=== PATIENT | male | born 1955 | race Caucasian/White ===

== ENCOUNTER 2017-01-26 01:45 | Emergency (ER) | payer OTHER, MEDICARE ==
[~2017-01-26] VITALS: Ht 172.7 cm; Wt 74.8 kg
[2017-01-26] MEDS ORDERED: LORAZEPAM2 M1 PO (02:10)
[2017-01-26] MEDS ORDERED: DULOXETINE HCL60 MG PO (02:11)
[2017-01-26 02:20] LABS: ABSOLUTE BASOPHIL COUNT 0 /CUMM (0.0-0.2); ABSOLUTE EOSINOPHIL COUNT 0.3 /CUMM (0.0-0.7); ABSOLUTE GRANULOCYTE CT 6.1 /CUMM (1.4-6.5); ABSOLUTE LYMPH COUNT 3.4 /CUMM (1.2-3.4); ABSOLUTE MONOCYTE COUNT 0.6 /CUMM (0.10-0.60); BASOPHIL % 0.4 % (0.0-2.0); EOSINOPHIL % 3.2 % (0-5); MEAN CORPUSCULAR HGB 28.7 PG (27.0-31.0); MEAN CORPUSCULAR HGB CONC 33.4 G/DL (33.0-37.0); MEAN CORPUSCULAR VOLUME 85.8 FL (80.0-94.0); MEAN PLATELET VOLUME 8.6 FL (7.4-10.4); PLATELET COUNT 228 /CUMM (130-400); RED BLOOD CELL CT 5.25 /CUMM (4.70-6.10); WHITE BLOOD CELL COUNT 10.4 /CUMM (4.8-10.8)
--- NOTE | 2017-01-26 02:23 | ED GI/GU/ABDOMINAL COMPLAINT ---
History of Present Illness General Chief Complaint: Abdominal Pain/Flank Pain Stated Complaint: "PER PT ABD PAIN RADIATING" Source: patient Exam Limitations: no limitations Vital Signs & Intake/Output Vital Signs & Intake/Output Vital Signs Date Time Temp Pulse Resp B/P B/P Pulse O2 O2 Flow FiO2 Mean Ox Delivery Rate 01/26 0404 56 20 118/80 96 Room Air 01/26 0209 95.4 60 18 123/76 94 Room Air Allergies Coded Allergies: erythromycin base (Severe, "COLON BLEEDS" 01/26/17) Reconcile Medications Duloxetine HCl 60 MG CAPSULE.DR 1 CAP PO DAILY (Reported) Lorazepam 2 MG TABLET 1 TAB PO QPMP ANXIETY (Reported) Triage Nurses Notes Reviewed? yes Onset: Gradual Duration: day(s):, waxing and waning Timing: recent history Quality/Severity: cramping Location: right flank Radiation: no radiation Activities at Onset: none Prior Abdominal Problems: none Modifying Factors: Worsens With: movement, palpation. Associated Symptoms: abdominal pain HPI: 61 yo gentleman h/o hip replacement in October 2016 presents with right flank pain x 6 days. "I bent over a few days ago... and now it still hurts... it feels deep... It hurts when I move." No nausea, vomiting, diarrhea, dysuria. Past History Travel History Traveled to [place] past 21 day No Medical History Any Pertinent Medical History? see below for history Psychiatric: depression, opioid dependence Surgical History Surgical History: right hip replacement. Psychosocial History What is your primary language Belarusian Family History Hx Contributory? No Review of Systems Review of Systems Constitutional: Reports: no symptoms. EENTM: Reports: no symptoms. Respiratory: Reports: no symptoms. Cardiovascular: Reports: no symptoms. GI: Reports: no symptoms. Genitourinary: Reports: no symptoms. Musculoskeletal: Reports: no symptoms. Skin: Reports: no symptoms. Neurological/Psychological: Reports: no symptoms. Hematologic/Endocrine: Reports: no symptoms. Immunologic/Allergic: Reports: no symptoms. All Other Systems: Reviewed and Negative Physical Exam Physical Exam General Appearance: well developed/nourished, mild distress Head: atraumatic, normal appearance Eyes: Bilateral: normal appearance. Ears, Nose, Throat, Mouth: hearing grossly normal Neck: normal inspection, supple, full range of motion Respiratory: normal breath sounds, chest non-tender, no respiratory distress, quiet respiration, lungs clear Cardiovascular: regular rate/rhythm Gastrointestinal: normal bowel sounds, soft, right sided tenderness to palpation. Back: normal inspection, normal range of motion Extremities: normal range of motion Neurologic/Psych: no motor/sensory deficits, awake, alert, oriented x 3 Skin: intact, normal color, warm/dry Core Measures ACS in differential dx? No Severe Sepsis Present: No Septic Shock Present: No Progress Differential Diagnosis: appendicitis, cholecystitis, diverticulitis, vs other. Plan of Care: Orders Procedure Date/time Status TROPONIN LEVEL 01/26 147 Complete LIPASE 01/26 147 Complete HEPATIC FUNCTION PANEL 01/26 147 Complete CBC WITHOUT DIFFERENTIAL 01/26 147 Complete BASIC METABOLIC PANEL 01/26 147 Complete AMYLASE 01/26 147 Complete EKG 01/26 147 Active Laboratory Tests 01/26/17 0200: Anion Gap 8, Estimated GFR > 60, BUN/Creatinine Ratio 27.5 H, Glucose 94, Calcium 9.4, Total Bilirubin 0.3, Direct Bilirubin 0.2, AST 30, ALT 35, Alkaline Phosphatase 65, Troponin I < 0.01, Total Protein 6.5, Albumin 3.8, Amylase 96, Lipase 170, CBC w Diff NO MAN DIFF REQ, RBC 5.25, MCV 85.8, MCH 28.7, RDW 14.0, MPV 8.6, Gran % 58.0, Lymphocytes % 33.0, Monocytes % 5.4, Eosinophils % 3.2, Basophils % 0.4, Absolute Granulocytes 6.1, Absolute Lymphocytes 3.4, Absolute Monocytes 0.6, Absolute Eosinophils 0.3, Absolute Basophils 0, PUBS MCHC 33.4 Diagnostic Imaging: Viewed by Me: CT Scan. Discussed w/RAD: CT Scan. Radiology Impression: abd/pelvic ct... no acute disease... full report below. Initial ED EKG: normal axis, normal intervals, normal p-waves, normal QRS complex, normal sinus rhythm Comments: PATIENT: YOVANI VENTURA PRESENT AGE: 61 PATIENT ACCOUNT NO: [id number] : 56 LOCATION: [facility] ORDERING PHYSICIAN: ERVIN PATRICK MD SERVICE DATE: 01/26/17 EXAM TYPE: CAT - CT ABD & PELVIS W/O IV CONTRAS EXAMINATION: CT ABDOMEN AND PELVIS WITHOUT CONTRAST CLINICAL INFORMATION: Right flank pain COMPARISON: None TECHNIQUE: Multidetector volumetric imaging was performed from the superior aspect of the liver through the pubic symphysis. Sagittal and coronal reformatted images were obtained on the technologist's workstation. DLP: 401.20 mGy-cm FINDINGS: LUNG BASES: The visualized lung bases are unremarkable. LIVER, GALLBLADDER, AND BILIARY TREE: The liver is normal in size, shape, and attenuation. No focal hepatic lesion or biliary ductal dilatation is present. The gallbladder is unremarkable with no evidence of radiopaque gallstones, gallbladder wall thickening, or obvious pericholecystic inflammatory changes. PANCREAS: Unremarkable. SPLEEN: Unremarkable. ADRENAL GLANDS: Unremarkable. KIDNEYS AND URETERS: The kidneys are normal in size, shape, and attenuation. No hydronephrosis, hydroureter, or calculi seen. BLADDER: Unremarkable. GASTROINTESTINAL TRACT: The small and large bowel are unremarkable. The appendix is unremarkable. No free fluid or free air is seen. ABDOMINAL WALL: No significant hernia is appreciated. LYMPH NODES: Normal. VASCULAR: Scattered atherosclerotic calcifications are present. PELVIC VISCERA: Unremarkable. OSSEOUS STRUCTURES: Patient is status post right total hip arthroplasty. There are degenerative changes, most prominently in the mid to lower lumbar spine. IMPRESSION: No acute findings identified in the abdomen/pelvis. DICTATED BY: SHY QUEVEDO MD DATE/TIME DICTATED:01/26/17337 CHAIR UPHOLSTERER:SAUL DATE/TIME TRANSCRIBED:01/26/17337 CONFIDENTIAL, DO NOT COPY WITHOUT APPROPRIATE AUTHORIZATION. <Electronically signed in Other Vendor System> SIGNED BY: SHY QUEVEDO MD 01/26/17 0350 Departure Departure Disposition: HOME OR SELF CARE Condition: Stable Clinical Impression Primary Impression: Abdominal pain Referrals: GILBERTO STEVENSON,BULL [place] (PCP/Family) Departure Forms: Customer Survey General Discharge Information Comments pt well appearing at discharge. Negative ct scan, labs benign... pt safe for discharge... advised close follow up with his pmd.
--- NOTE | 2017-01-26 03:50 | CT SCAN REPORT ---
EXAMINATION: CT ABDOMEN AND PELVIS WITHOUT CONTRAST CLINICAL INFORMATION: Right flank pain COMPARISON: None TECHNIQUE: Multidetector volumetric imaging was performed from the superior aspect of the liver through the pubic symphysis. Sagittal and coronal reformatted images were obtained on the technologist's workstation. DLP: 401.20 mGy-cm FINDINGS: LUNG BASES: The visualized lung bases are unremarkable. LIVER, GALLBLADDER, AND BILIARY TREE: The liver is normal in size, shape, and attenuation. No focal hepatic lesion or biliary ductal dilatation is present. The gallbladder is unremarkable with no evidence of radiopaque gallstones, gallbladder wall thickening, or obvious pericholecystic inflammatory changes. PANCREAS: Unremarkable. SPLEEN: Unremarkable. ADRENAL GLANDS: Unremarkable. KIDNEYS AND URETERS: The kidneys are normal in size, shape, and attenuation. No hydronephrosis, hydroureter, or calculi seen. BLADDER: Unremarkable. GASTROINTESTINAL TRACT: The small and large bowel are unremarkable. The appendix is unremarkable. No free fluid or free air is seen. ABDOMINAL WALL: No significant hernia is appreciated. LYMPH NODES: Normal. VASCULAR: Scattered atherosclerotic calcifications are present. PELVIC VISCERA: Unremarkable. OSSEOUS STRUCTURES: Patient is status post right total hip arthroplasty. There are degenerative changes, most prominently in the mid to lower lumbar spine. IMPRESSION: No acute findings identified in the abdomen/pelvis.
[2017-01-26 04:04] VITALS: BP 118/80
== END 2017-01-26 04:06 ==
LOC: ERH 01:45
PROVIDERS: Pediatrics
DX: R10.31 Right lower quadrant pain (principal)
CPT/HCPCS: 74176; 93005; 93010

== ENCOUNTER 2017-12-10 21:44 | Emergency (ER) | payer OTHER, MEDICARE ==
[~2017-12-10] VITALS: Ht 175.3 cm; Wt 75.8 kg
[~2017-12-10 21:44] MED LIST: DULOXETINE HCL60 MG PO; LORAZEPAM2 M1 PO
[2017-12-10 21:48] VITALS: BP 165/89
--- NOTE | 2017-12-10 23:08 | RADIOLOGY REPORT ---
EXAMINATION: XR CHEST CLINICAL INFORMATION: Pain COMPARISON: 04/17/2017 chest TECHNIQUE: 2 views of the chest were obtained. FINDINGS: Pacemaker leads are present over the right atrium and right ventricular apex without significant change from prior. There is a normal heart size and mildly tortuous aorta unchanged. Pulmonary vascularity is unchanged. Lungs are clear. There is no pleural effusion or pneumothorax. No acute bony abnormality IMPRESSION: Chest x-ray shows no acute findings and no change from prior
--- NOTE | 2017-12-11 00:43 | ED INFLUENZA/URI COMPLAINT ---
History of Present Illness General Chief Complaint: General Adult Stated Complaint: LOW BACK PAIN, THROAT PAIN, ?FEVER Source: patient Exam Limitations: no limitations Vital Signs & Intake/Output Vital Signs & Intake/Output ED Intake and Output 12/12 0000 12/11 1200 Intake Total 0 Output Total Balance 0 Intake, Oral 0 Allergies Coded Allergies: erythromycin base (Severe, "COLON BLEEDS" 01/26/17) Reconcile Medications Amoxicillin 500 MG TABLET 2 TAB PO BID PHARYNGITIS Amoxicillin 500 MG TABLET 1 TAB PO BID PHARYNGITIS DISREGARD PREVIOUS PLEASE DISREGARD PREVIOUS RX THIS IS COPRRECT Duloxetine HCl 60 MG CAPSULE. 1 CAP PO DAILY (Reported) Lorazepam 2 MG TABLET 1 TAB PO QPMP ANXIETY (Reported) Triage Note: PT TO TRIAGE WHILE VISITING SPOUSE WHO IS PT IN ER STATING "MY LUNGS HURT AND MY THROAT HURTS." PT REPORTS BEEN AROUND SOMEONE WITH STREP THROAT. TEMP 99.0. HX MRSA Triage Nurses Notes Reviewed? yes Onset: Abrupt Duration: day(s): (2-3), constant, continues in ED, getting worse Timing: single episode today Severity: mild, moderate Severity Numbers: 6 Prior Episodes/Possible Cause: no prior episodes No Modifying Factors: none Associated Symptoms: cough, nasal congestion, nasal drainage, sore throat HPI: 62-year-old male past medical history of depression, pacemaker placement, presents for evaluation of cough, congestion and sore throat. Patient states that this started 2 or 3 days ago. Pain is worse with swallowing but he is tolerating fluids. His is sick at home with similar symptoms. He denies shortness of breath or chest pain but does state that he has some pain in his ribs when coughing. Cough is dry. No history of underlying lung disease like asthma COPD. He is not a smoker. No fevers at home. Has not taken any medicine for this. No abdominal pain nausea vomiting diarrhea. (Bong Shell) Past History Travel History Traveled to [place] past 21 day No Medical History Any Pertinent Medical History? see below for history Neurological: NONE EENT: NONE Cardiovascular: NONE Respiratory: NONE Gastrointestinal: NONE Hepatic: NONE Renal: NONE Musculoskeletal: NONE Psychiatric: depression, opioid dependence Endocrine: NONE Blood Disorders: NONE Cancer(s): NONE SHIRT CLEANER/Reproductive: NONE Surgical History Surgical History: right hip replacement. Psychosocial History What is your primary language Bhutanese Tobacco Use: Never used Family History Hx Contributory? No (Bong Shell) Review of Systems Review of Systems Constitutional: Reports: no symptoms. EENTM: Reports: nasal congestion, throat pain. Respiratory: Reports: see HPI, cough. Cardiovascular: Reports: no symptoms. GI: Reports: no symptoms. Genitourinary: Reports: no symptoms. Musculoskeletal: Reports: no symptoms. Skin: Reports: no symptoms. Neurological/Psychological: Reports: no symptoms. Hematologic/Endocrine: Reports: no symptoms. Immunologic/Allergic: Reports: no symptoms. All Other Systems: Reviewed and Negative (Bong Shell) Physical Exam Physical Exam General Appearance: well developed/nourished, no apparent distress, alert, awake Head: atraumatic, normal appearance Eyes: Bilateral: normal appearance, PERRL, EOMI. Ears, Nose, Throat: moist mucous membrane, hearing grossly normal, Tympanic normal, nasal congestion, nasal drainage, pharyngeal erythema Neck: normal inspection, supple, full range of motion, lymphadenopathy (R), lymphadenopathy (L) Respiratory: normal breath sounds, chest non-tender, no respiratory distress, lungs clear Cardiovascular: regular rate/rhythm, normal peripheral pulses Peripheral Pulses: 2+ radial (R), 2+ radial (L) Gastrointestinal: soft, non-tender Back: normal inspection, normal range of motion, no vertebral tenderness Extremities: normal inspection, normal range of motion, no edema Neurologic/Psych: no motor/sensory deficits, awake, alert, oriented x 3, normal gait, normal mood/affect Skin: intact, normal color, warm/dry Lymphatic: no anterior cervical anastasiya Core Measures Sepsis Present: No Sepsis Focused Exam Completed? No (Bong Shell) Progress Differential Diagnosis: influenza, otitis, pneumonia, pharyngitis, sinusitis Plan of Care: Orders Procedure Date/time Status THROAT CULTURE W/QUICK STREP 12/11 2151 Complete Patient seen and evaluated. He is here with a sore throat cough congestion. His is sick at home with similar symptoms. He is able tolerate fluids or signs of abscess. Rapid strep is positive. Chest x-ray is clear. Vital signs are stable. He appears clinically well. Patient was given a prescription for amoxicillin. Tylenol ibuprofen for pain warm fluids or water gargles. Follow- up with primary care doctor discussed return precautions patient agrees the plan Diagnostic Imaging: Viewed by Me: Radiology Read. Discussed w/RAD: Radiology Read. Radiology Impression: PATIENT: YOVANI VENTURA PRESENT AGE: 62 PATIENT ACCOUNT NO: [id number] : 56 LOCATION: [facility] ORDERING PHYSICIAN: Carlos Coronado DO (TBS) SERVICE DATE: 12/10/17 EXAM TYPE: RAD - XRY-CHEST XRAY, TWO VIEWS EXAMINATION: XR CHEST CLINICAL INFORMATION : Pain COMPARISON: 04/17/2017 chest TECHNIQUE: 2 views of the chest were obtained. FINDINGS: Pacemaker leads are present over the right atrium and right ventricular apex without significant change from prior. There is a normal heart size and mildly tortuous aorta unchanged. Pulmonary vascularity is unchanged. Lungs are clear. There is no pleural effusion or pneumothorax. No acute bony abnormality IMPRESSION: Chest x-ray shows no acute findings and no change from prior DICTATED BY: Renee Fowler MD DATE/TIME DICTATED:12/10/172301 STEELER:SAUL DATE/TIME TRANSCRIBED:12/10/172301 CONFIDENTIAL, DO NOT COPY WITHOUT APPROPRIATE AUTHORIZATION. <Electronically signed in Other Vendor System> Initial ED EKG: none (Bong Shell) Departure Departure Disposition: HOME OR SELF CARE Condition: Stable Clinical Impression Primary Impression: Strep pharyngitis Referrals: Jennifer STEVENSON,[place] (PCP/Family) Additional Instructions: Take antibiotics as directed for the full course. Tylenol or IBUProfen as needed for pain or fevers. Warm fluids salt gargles, lozengesto soothe YOUr throat. Make a follow-up appointment with YOUR primary care doctor to review all results of today's visit. Monitor symptoms and return with any concerns. Departure Forms: Customer Survey General Discharge Information Prescriptions: Current Visit Scripts Amoxicillin 2 TAB PO BID #20 TAB Amoxicillin 1 TAB PO BID #20 TAB PLEASE DISREGARD PREVIOUS RX THIS IS COPRRECT (Bong Shell) PA/TRANSIT MIXER OPERATOR Co-Sign Statement Statement: ED Attending supervision documentation- [] I saw and evaluated the patient. I have also reviewed all the pertinent lab results and diagnostic results. I agree with the findings and the plan of care as documented in the PA's/TRANSIT MIXER OPERATOR's documentation. [x] I have reviewed the ED Record and agree with the PA's/TRANSIT MIXER OPERATOR's documentation. [] Additions or exceptions (if any) to the PAs/TRANSIT MIXER OPERATOR's note and plan are summarized below: [] (Kika STEVENSON,Brendan Michael)
[2017-12-11] MEDS ORDERED: AMOXICILLIN500 M3 PO ×2 (00:47→00:48)
== END 2017-12-11 01:14 ==
LOC: ERH 21:44
DX: J02.0 Streptococcal pharyngitis (principal); R05 Cough
CPT/HCPCS: 71046